=== PATIENT | female | born 1965 | race Native Hawaiian/Other Pacific Islander ===

== ENCOUNTER 2018-05-22 21:30 | Emergency (ER) | payer OTHER ==
[~2018-05-22] VITALS: Ht 167.6 cm; Wt 97.5 kg
[2018-05-22 22:55] VITALS: BP 146/91; TEMP 97.5
== END 2018-05-22 22:55 | disposition home or self-care (01) ==
LOC: ED 21:30
DX: J20.9 Acute bronchitis, unspecified (principal); Z72.0 Tobacco use
CPT/HCPCS: 96372; 99283; J0696; J2920

== ENCOUNTER 2018-05-28 10:16 | Outpatient (CLI) | payer OTHER | END 2018-05-28 19:00 | disposition home or self-care (01) | LOC: RAD 10:16 | DX: J20.8 Acute bronchitis due to other specified organisms (principal) ==

== ENCOUNTER 2020-07-14 11:03 | Outpatient (CLI) | payer OTHER | END 2020-07-14 18:59 | disposition home or self-care (01) | LOC: RAD 11:03 | PROVIDERS: ATTEND Nurse Practitioner Family | DX: J44.9 Chronic obstructive pulmonary disease, unspecified (principal); I10 Essential (primary) hypertension; E16.2 Hypoglycemia, unspecified; Z76.89 Persons encountering health services in other specified circumstances; F41.1 Generalized anxiety disorder ==

== ENCOUNTER 2020-07-19 07:58 | Outpatient (CLI) | payer OTHER | END 2020-07-19 21:46 | disposition home or self-care (01) | LOC: US 07:58 | PROVIDERS: ATTEND Nurse Practitioner Family | DX: J44.9 Chronic obstructive pulmonary disease, unspecified (principal); I10 Essential (primary) hypertension; E16.2 Hypoglycemia, unspecified; Z76.89 Persons encountering health services in other specified circumstances; R10.11 Right upper quadrant pain; F41.9 Anxiety disorder, unspecified; F17.200 Nicotine dependence, unspecified, uncomplicated ==

== ENCOUNTER 2020-07-30 07:58 | Outpatient (CLI) | payer OTHER | END 2020-07-30 21:33 | disposition home or self-care (01) | LOC: NM 07:58 | PROVIDERS: ATTEND Nurse Practitioner Family | DX: R73.03 Prediabetes (principal); E78.5 Hyperlipidemia, unspecified; R16.0 Hepatomegaly, not elsewhere classified; K76.0 Fatty (change of) liver, not elsewhere classified; R10.9 Unspecified abdominal pain | CPT/HCPCS: A9537 ==

== ENCOUNTER 2020-08-01 13:04 | Outpatient (CLI) | payer OTHER | END 2020-08-01 22:44 | disposition home or self-care (01) | LOC: RESP 13:04 | PROVIDERS: ATTEND Nurse Practitioner Family | DX: R73.03 Prediabetes (principal); E78.5 Hyperlipidemia, unspecified; R16.0 Hepatomegaly, not elsewhere classified; K76.0 Fatty (change of) liver, not elsewhere classified; R10.9 Unspecified abdominal pain ==

== ENCOUNTER 2020-10-18 10:35 | Outpatient (CLI) | payer OTHER ==
[2020-11-02 11:05] LABS: POTASSIUM 3.7 mmol/L (3.6-5.2)
[2020-11-02 11:08] LABS: PLATELET COUNT 172 K/uL (152-353)
== END 2020-10-18 23:11 | disposition home or self-care (01) ==
LOC: MAMMO 10:35
PROVIDERS: ATTEND Nurse Practitioner Family
DX: R10.9 Unspecified abdominal pain (principal); R74.8 Abnormal levels of other serum enzymes; R80.9 Proteinuria, unspecified; Z12.31 Encounter for screening mammogram for malignant neoplasm of breast; R80.1 Persistent proteinuria, unspecified; N02.9 Recurrent and persistent hematuria with unspecified morphologic changes; R53.83 Other fatigue
CPT/HCPCS: 80053; 81000; 82043; 82306; 82570; 82607; 82728; 83036; 83540; 83550; 83735; 84155; 84165; 84166; 84439; 84443; 85027; 85652; 86038; 86225

== ENCOUNTER 2021-03-19 12:02 | Outpatient (CLI) | payer OTHER ==
[2021-03-19 13:05] LABS: PLATELET COUNT 201 K/uL (152-353)
[2021-03-19 13:28] LABS: POTASSIUM 3.6 mmol/L (3.6-5.2)
== END 2021-03-19 20:23 | disposition home or self-care (01) ==
LOC: LABW 12:02
PROVIDERS: ATTEND Internal Medicine
DX: J45.909 Unspecified asthma, uncomplicated (principal); J44.9 Chronic obstructive pulmonary disease, unspecified; I10 Essential (primary) hypertension; E16.2 Hypoglycemia, unspecified; Z76.89 Persons encountering health services in other specified circumstances; J43.9 Emphysema, unspecified; F41.1 Generalized anxiety disorder
CPT/HCPCS: 36415; 80053; 81000; 82043; 82306; 82570; 82607; 82728; 83036; 83540; 83550; 83735; 84155; 84165; 84166; 84439; 84443; 85027; 85652; 86038; 86225

== ENCOUNTER → 2021-04-15 | Outpatient (CLI) | payer OTHER | LOC: RAD 10:34 | PROVIDERS: ATTEND Nurse Practitioner Family | DX: R22.42 Localized swelling, mass and lump, left lower limb (principal); J44.9 Chronic obstructive pulmonary disease, unspecified ==

== ENCOUNTER 2021-05-13 07:59 | Outpatient (CLI) | payer OTHER | END 2021-05-13 19:30 | disposition home or self-care (01) | LOC: CT 07:59 | PROVIDERS: ATTEND Internal Medicine Sleep Medicine | DX: R91.8 Other nonspecific abnormal finding of lung field (principal) | CPT/HCPCS: 36415; 82565; 84520; Q9963 ==

== ENCOUNTER 2022-05-08 14:06 | Emergency (ER) | payer OTHER ==
[~2022-05-08] VITALS: Ht 167.6 cm; Wt 97.5 kg
[2022-05-08 14:22] VITALS: TEMP 98.1
[2022-05-08 15:01] LABS: PLATELET COUNT 223 K/uL (152-353)
[2022-05-08 15:18] LABS: PARTIAL THROMBOPLASTIN TIME 27.5 SECONDS (24.5-33.6)
[2022-05-08 15:42] LABS: POTASSIUM 4.5 mmol/L (3.6-5.2)
[2022-05-08] MEDS ORDERED: Z-PAK PO (17:20)
[2022-05-08] MEDS ORDERED: MEDROL DOSEPAK4 MG PO (17:20)
[2022-05-08 17:21] VITALS: BP 124/71
== END 2022-05-08 17:25 | disposition home or self-care (01) ==
LOC: ED 14:06
PROVIDERS: Emergency Medicine
DX: J44.9 Chronic obstructive pulmonary disease, unspecified (principal); F17.210 Nicotine dependence, cigarettes, uncomplicated; R79.89 Other specified abnormal findings of blood chemistry; Z20.822 Contact with and (suspected) exposure to COVID-19
CPT/HCPCS: 36415; 80053; 83880; 84484; 85027; 85379; 85610; 85730; 87502; 87635; 93005; 94664; 96365; 96375; 99284; J0696; J2920; U0003

== ENCOUNTER 2022-07-16 18:22 | Emergency (ER) | payer OTHER ==
[~2022-07-16] VITALS: Ht 165.1 cm; Wt 102.5 kg
[~2022-07-16 18:22] MED LIST: MEDROL DOSEPAK4 MG PO; Z-PAK PO
[2022-07-16 18:30] VITALS: TEMP 98
[2022-07-16 20:00] VITALS: BP 125/75
== END 2022-07-16 20:00 | disposition home or self-care (01) ==
LOC: ED 18:22
PROC: 2W3CX1Z Immobilization of Right Lower Arm using Splint (ICD-10-PCS; principal; 2022-07-16)
DX: M65.9 Synovitis and tenosynovitis, unspecified (principal)
CPT/HCPCS: 99282

== ENCOUNTER 2022-10-14 13:10 | Outpatient (CLI) | payer OTHER | END 2022-10-14 19:22 | disposition home or self-care (01) | LOC: CT 13:10 | PROVIDERS: ATTEND Internal Medicine Sleep Medicine | DX: F17.210 Nicotine dependence, cigarettes, uncomplicated (principal) ==

== ENCOUNTER 2023-01-19 11:34 | Outpatient (CLI) | payer OTHER | END 2023-01-19 21:25 | disposition home or self-care (01) | LOC: RAD 11:34 | PROVIDERS: ATTEND Orthopaedic Surgery | DX: M79.641 Pain in right hand (principal); M79.642 Pain in left hand ==